=== PATIENT | male | born 1955 | race Caucasian/White ===

== ENCOUNTER → 2019-04-06 | Outpatient (CLI) | payer OTHER ==
--- NOTE | 2019-04-07 16:23 | PCVCIMAG ---
APPROVED REPORT Study performed: 04/06/2019 15:18:41 Exam: Stress Echocardiogram Indication: abn ekg, htn, obstructive sleep apnea Patient Location: Echo lab Stress Nurse: Vicenta Mendoza RN Status: routine Ht: 6 ft 0 in HR: 87 bpm BP: 144/80 mmHg Rhythm: NSR Procedure The patient underwent an Exercise Stress Test using the Cade Protocol. Blood pressure, heart rate, and EKG were monitored. An Echocardiogram was performed by bone density technician in four stages in quad fashion. At peak stress, four selected images were obtained and placed side by side with resting images for comparison. Stress Test Details Stress Test: Exercise stress testing was performed using a Cade protocol. HR Resting HR: 87 bpmMax Heart Rate (APMHR): 157 bpm Max HR Achieved: 150 bpmTarget HR (85% APMHR): 133 bpm % of APMHR: 95 Recovery HR: 102 bpm HR response to stress: Normal HR response to stress BP Resting BP: 144/80 mmHg Max BP: 198/80 mmHg Recovery BP: 182/76 mmHg BP response to stress: Normal blood pressure response to stress. ECG Resting ECG: Sinus Rhythm, incomplete RBBB w/ PVCs Stress ECG: Sinus Rhythm, incomplete RBBB ST Change: Normal Arrhythmia: isolated PVCs Recovery ECG: Sinus Rhythm Recovery ST Change: Normal Recovery Arrhythmia: PVCs Clinical Reason for Termination: Maximal effort, Dyspnea Stress Symptoms: Dyspnea Exercise duration: 6 min 20 sec Highest Stage Achieved: Stage 3: 3.4 mph at 14% grade. Exercise capacity: 7.9 METs Overall Exercise Capacity for Age: Normal Scale: Sedentary Angina Score: None Stress ECG Conclusion 1. subjectively negative for ischemia 2. electrocardiographically negative for ischemia 3. reduced functional capacity Pre-Stress Echo The resting Echocardiogram showed normal left ventricular contractility with an estimated Ejection Fraction of about >55%. Normal wall motion in all segments on baseline images. Post-Stress Echo The stress Echocardiogram showed normal left ventricular contractility with an estimated Ejection Fraction of about 60-65%. Normal augmentation of wall motion in all segments on post stress images. Clinical No clinical or ECG evidence for ischemia. Conclusion Clinical Response: Non-ischemic Exercise Capacity: Average Stress ECG Response: Non-ischemic Stress Echo Images: Non-ischemic The left ventricle is normal in size and wall thickness in both the rest and stress images. 1. Low Risk Study Other Information Study Quality: Adequate <Conclusion> The left ventricle is normal in size and wall thickness in both the rest and stress images. 1. Low Risk Study
== END | disposition home or self-care (01) ==
LOC: PCVCIMAG 14:51
PROVIDERS: ATTEND Internal Medicine
DX: R94.31 Abnormal electrocardiogram [ECG] [EKG] (principal); I10 Essential (primary) hypertension; G47.33 Obstructive sleep apnea (adult) (pediatric)
CPT/HCPCS: 93325; 93351